=== PATIENT | female | born 1995 | race Caucasian/White ===

== ENCOUNTER 2018-11-21 20:48 | Emergency (ER) | payer MEDICAID ==
--- NOTE | 2018-11-21 21:15 | NUR ---
CALLED PT TO BE TRAIGED, NO ANSWER
--- NOTE | 2018-11-21 21:26 | NUR ---
CALLED PT TO BE TRAIGED, NO ANSWER
--- NOTE | 2018-11-21 21:30 | NUR ---
CALLED PT TO BE TRAIGED, NO ANSWER
--- NOTE | 2018-11-21 22:09 | NUR ---
CALLED PT TO BE TRAIGED, NO ANSWER
== END 2018-11-21 22:10 | disposition left against medical advice (07) ==
LOC: ER 20:53
DX: Z53.21 Procedure and treatment not carried out due to patient leaving prior to being seen by health care provider (principal)